=== PATIENT | female | born 1945 | race Caucasian/White ===

== ENCOUNTER → 2017-05-10 | Outpatient (CLI) | payer OTHER ==
[~2017-05-10] MED LIST: ACETAMINOPHEN-120 ML PO; ASPIRIN81 M2 PO; ATENOLOL50 MG PO; Aspirin E.C. PO; BACK CREAM TP; BACLOFEN10 MG PO; BENGAY VANISHIN57 GM TP; CEFTIN500 MG PO; CHILDREN'S ASPI81 M1 PO; CIPRO500 MG PO; COUMADIN1 MG PO; COUMADIN2 MG PO; COUMADIN2.5 MG PO; DEBROX15 ML BOTH EARS; DOCUSATE SODIU100 MG PO; DUONEB 2.5-0.5 M3 ML AEROSOL; FUROSEMIDE40 MG PO; Flagyl PO; GABAPENTIN100 MG PO; GARLIC OIL1 EAC1 PO; IRON325 M1 PO; KLOR-CON M2020 MEQ PO; LASIX40 MG PO; LEVAQUIN500 MG PO; LIDODERM 5% P1 PATCH TD; MELATONIN1 MG PO; METOPROLOL SUCC25 MG PO; METOPROLOL TART25 MG PO; MILK OF MAGNESI10 ML PO; MIRALAX255 GM PO; NEURONTIN100 MG PO; NITROSTAT0.4 MG SL; POLYETHYLENE G255 GM PO; POLYETHYLENE GL17 GM PO; PRAVASTATIN SOD40 MG PO; SENNA-TIME S T1 EACH PO; SIMVASTATIN20 MG PO; SYNTHROID; SYNTHROID50 MCG PO; SYNTHROID75 MCG PO; TOPROL XL25 MG PO; TRAMADOL HCL50 MG PO; TYLENOL REGULA325 MG PO; WARFARIN SODIUM1 MG PO; ZOFRAN4 MG PO; [UNRECOGNIZED DRUG - CODE] DT; [UNRECOGNIZED DRUG - REMARK]
== END | disposition home or self-care (01) ==
LOC: RAD 08:53
DX: I65.23 Occlusion and stenosis of bilateral carotid arteries (principal)
CPT/HCPCS: 93880

== ENCOUNTER → 2017-09-19 | Outpatient (CLI) | payer OTHER | END | disposition home or self-care (01) | LOC: RAD 13:30 | DX: R13.12 Dysphagia, oropharyngeal phase (principal); I69.354 Hemiplegia and hemiparesis following cerebral infarction affecting left non-dominant side; R05 Cough | CPT/HCPCS: 74230; 92611 GN; G8996 GN CH; G8997 GN CH; G8998 GN CH ==